=== PATIENT | female | born 1965 | race Caucasian/White ===

== ENCOUNTER 2018-08-20 04:24 | Emergency (ER) | payer MEDICAID ==
--- NOTE | 2018-08-20 05:05 | ED Physician Chart ---
ED Chief Complaint/HPI - Patient Information Date Seen:: 08/20/18 Time Seen:: 05:05 Chief Complaint:: Laceration History of Present Illness:: 53 yo female had a laceration to the left dorsal hand while cutting tarp 30 minutes prior. Patient stated a lot of bleeding from the wound. Allergies:: Allergies Allergy/AdvReac Type Severity Reaction Status Date / Time No Known Allergies Allergy Verified 08/20/18 04:45 Vitals:: Vital Signs - 8 hr 08/20/18 04:25 Temp 98.8 F HR 78 RR 18 BP 137/95 O2 Sat % 97 ED Review of Systems - Review of Systems General/Constitutional: No fever Skin: Skin lesions Head: No headache Eyes: No pain ENT: No nasal drainage Neck: No neck pain Cardio Vascular: No chest pain Pulmonary: No SOB GI: No nausea, No vomiting Musculoskeletal: No bone or joint pain Neurological: No focal symptoms ED Past Medical History - Past Medical History Past Medical History: Other (hypoglycemia) Social History: Smoker, No Alcohol, No Drug Use Surgical History: other (Right shoulder surgery for fracture and dislocation) Family Medical History - Family Member Mother History Unknown: Yes ED Physical Exam - Physical Examination General/Constitutional: Awake, Alert Head: Atraumatic Eyes: PERRL Other Skin comments:: A 4cm simple, superficial laceration on the left dorsal hand between first and second metacarpals, with venous oozing. Neck: No nuchal rigidity Respiratory: No Wheeze/Rhonchi/Rales Cardio Vascular: RRR, No murmur, gallop, rubs, NL S1 S2 GI: No tenderness/rebounding/guarding Extremities: normal strength in all extremities Neuro/Psych: Normal motor strength ED Assessment - Assessment General Assessment: Left dorsal hand laceration Assessment/Comments:: Repair laceration Tetanus shot Keflex 500mg po x 1 D/c home Keflex 500mg po bid x 7 days Change dressing in 3 days Remove sutures in 7-10 days Location:: Dorsal side of the left hand Laceration Type:: Simple Wound Length: 4 cm Prep/Irrigation:: Irrigate the wound with NS, Hydrogen peroxide, betadine Comments: 1% lidocaine SQ was used to achieve adequate local anesthesia, three horizontal mattress sutures were placed with 4-0 Prolene to close the wound with good homeostasis. Patient tolerated the procedure well without complication. Apply bacitracin topically. Pressure dressing. ED Septic Shock - . Is Septic Shock (SBP<90, OR Lactate>4 mmol\L) present?: No - <6hrs of presentation: Vital Signs: Vital Signs - 8 hr 08/20/18 04:25 Temp 98.8 F HR 78 RR 18 BP 137/95 O2 Sat % 97 ED Reassessment (Disposition) - Reassessment Reassessment Condition:: Improved - Patient Disposition Discharge/Transfer:: Home
[2018-08-20] MEDS ORDERED: Bacitracin pkt 1 gm Pkt TP ONE (05:50)
[2018-08-20] MEDS ORDERED: Bacitracin pkt 1 gm Pkt TP STA (05:56)
== END 2018-08-20 06:07 | disposition home or self-care (01) ==
LOC: ER 04:24
DX: S61.412A Laceration without foreign body of left hand, initial encounter (principal); F17.200 Nicotine dependence, unspecified, uncomplicated; W26.8XXA Contact with other sharp object(s), not elsewhere classified, initial encounter; Y93.89 Activity, other specified; Y92.89 Other specified places as the place of occurrence of the external cause; Y99.8 Other external cause status
CPT/HCPCS: 12002; Z7502; Z7610

== ENCOUNTER 2018-08-26 21:48 | Emergency (ER) | payer MEDICAID ==
--- NOTE | 2018-08-27 00:09 | ED Physician Chart ---
ED Chief Complaint/HPI - Patient Information Date Seen:: 08/26/18 Time Seen:: 23:30 Chief Complaint:: Suture removal History of Present Illness:: 53 yo female presented to ER for removal of sutures on her left hand. The wound healed well without any pain, erythema or drainage. Patient denied any fever or chills. Allergies:: Allergies Allergy/AdvReac Type Severity Reaction Status Date / Time No Known Allergies Allergy Verified 08/26/18 21:51 Vitals:: Vital Signs - 8 hr 08/26/18 21:55 Temp 97.1 F HR 94 RR 18 BP 138/89 O2 Sat % 97 ED Review of Systems - Review of Systems General/Constitutional: No fever, No chills Skin: Skin lesions Head: No headache Eyes: No pain ENT: No earache Neck: No neck pain Cardio Vascular: No chest pain Pulmonary: No SOB GI: No nausea, No vomiting Musculoskeletal: No bone or joint pain Neurological: No focal symptoms ED Past Medical History - Past Medical History Past Medical History: Other (Hypoglycemia) Social History: Smoker, No Alcohol, No Drug Use Surgical History: other (Right shoulder surgery for fracture and dislocation) Family Medical History - Family Member Mother History Unknown: Yes ED Physical Exam - Physical Examination General/Constitutional: Awake, Alert Head: Atraumatic Eyes: PERRL Other Skin comments:: Left dorsal hand wound healed without erythema or purulent drainage. Neck: No nuchal rigidity Respiratory: Clear to Auscultation Cardio Vascular: RRR, No murmur, gallop, rubs, NL S1 S2 GI: No tenderness/rebounding/guarding Extremities: normal strength in all extremities Neuro/Psych: No focal deficits ED Assessment - Assessment General Assessment: Healed left hand wound with 3 sutures - Procedures Procedures:: Sutures removal: 3 4-0 Prolene sutures were removed without bleeding or any other complication. ED Septic Shock - . Is Septic Shock (SBP<90, OR Lactate>4 mmol\L) present?: No - <6hrs of presentation: Vital Signs: Vital Signs - 8 hr 08/26/18 21:55 Temp 97.1 F HR 94 RR 18 BP 138/89 O2 Sat % 97 ED Reassessment (Disposition) - Reassessment Reassessment Condition:: Improved - Patient Disposition Discharge/Transfer:: Home
== END 2018-08-26 22:39 | disposition home or self-care (01) ==
LOC: ER 21:48
DX: S61.412D Laceration without foreign body of left hand, subsequent encounter (principal); F17.200 Nicotine dependence, unspecified, uncomplicated; Z98.890 Other specified postprocedural states; X58.XXXD Exposure to other specified factors, subsequent encounter
CPT/HCPCS: Z7502